=== PATIENT | female | born 1990 | race African-American/Black ===

== ENCOUNTER 2019-07-12 08:27 | Inpatient (IN) | payer OTHER ==
--- NOTE | 2019-07-12 08:45 | HP ---
CIWA Score Nausea/Vomitin-Mild Nausea/No Vomiting Muscle Tremors: 1-None Visible, but [place] Anxiety: 2 Agitation: 3 Paroxysmal Sweats: 3 Orientation: 3-Disoriented Date>2 days Tacttile Disturbances: 0-None Auditory Disturbances: 0-None Visual Disturbances: 0-None Headache: 0-None Present (patient currently intoxicated with high alcohol on breath.) CIWA-Ar Total Score: 13 - Admission Criteria OASAS Guidelines: Admission for Medically Managed Detox: Requires at least one of the followin. CIWA greater than 12 2. Seizures within the past 24 hours 3. Delirium tremens within the past 24 hours 4. Hallucinations within the past 24 hours 5. Acute intervention needed for co occurring medical disorder 6. Acute intervention needed for co occurring psychiatric disorder 7. Severe withdrawal that cannot be handled at a lower level of care (continued vomiting, continued diarrhea, abnormal vital signs) requiring intravenous medication and/or fluids 8. Admitting History and Physical - Admission Chief Complaint: " I want to get clean." History of Present Illness: 28 year old female with alcohol dependence and crystal meth use disorder seeking detox with significant other. She is using $70 crystal meth daily. Last used yesterday. She is drinking 1/5 vodka daily and last drank 3 AM today. She has had blackouts yesterday and withdrawal seizures 2 days ago. She smokes 1 ppd. PMH: Gastritis, PUD, Pancreatitis Psurg: Skin Biopsy was negative for cancer Poor support systems and homeless. History Source: Patient Limitations to Obtaining History: No Limitations - Past Medical History Gastrointestinal: Yes: Gastritis, GERD, Peptic Ulcer Disease ...LMP: 12/22/17 - Past Surgical History Past Surgical History: Yes: None - Smoking History Smoking history: Current every day smoker Have you smoked in the past 12 months: Yes Aproximately how many cigarettes per day: 20 - Alcohol/Substance Use Hx Alcohol Use: Yes Date of Last Use: 07/11/19 - Social History Usual Living Arrangement: Yes: With Significant Other Do you think of yourself as: Straight/Heterosexual ADL: Independent Occupation: unemployed History of Recent Travel: No Admission ROS S - HPI Allergies/Adverse Reactions: Allergies Allergy/AdvReac Type Severity Reaction Status Date / Time No Known Allergies Allergy Verified 01/05/18 13:21 Exam Limitations: No Limitations - Ebola screening Have you traveled outside of the country in the last 21 days: No Have you had contact with anyone from an Ebola affected area: No Have you been sick,other than usual withdrawal symptoms: No Do you have a fever: No - Review of Systems Constitutional: Chills, Diaphoresis EENT: reports: No Symptoms Reported Respiratory: reports: No Symptoms reported Cardiac: reports: No Symptoms Reported GI: reports: No Symptoms Reported : reports: No Symptoms Reported Musculoskeletal: reports: No Symptoms Reported Integumentary: reports: No Symptoms Reported Neuro: reports: No Symptoms reported Endocrine: reports: No Symptoms Reported Hematology: reports: No Symptoms Reported Psychiatric: reports: No Sypmtoms Reported, Judgement Intact, Mood/Affect Appropiate, Orientated x3 Other Systems: Reviewed and Negative Patient History - Patient Medical History Hx Anemia: No Hx Asthma: No Hx Chronic Obstructive Pulmonary Disease (COPD): No Hx Cancer: No Hx Cardiac Disorders: No Hx Congestive Heart Failure: No Hx Hypertension: No Hx Hypercholesterolemia: No Hx Pacemaker: No HX Cerebrovascular Accident: No Hx Seizures: No Hx Diabetes: No Hx Gastrointestinal Disorders: No Hx Genitourinary Disorders: No Hx Sexually Transmitted Disorders: Yes (Trichomonas, Gonorrhea) Hx Renal Disease (ESRD): No Hx Thyroid Disease: No Hx Human Immunodeficiency Virus (HIV): No (last 2016 negative) Hx Hepatitis C: No Hx Depression: Yes Hx Suicide Attempt: No (x2() OVERDOSE ON MEDICATION) Hx Bipolar Disorder: Yes Hx Schizophrenia: No - Patient Surgical History Past Surgical History: No Hx Neurologic Surgery: No Hx Cataract Extraction: No Hx Cardiac Surgery: No Hx Lung Surgery: No Hx Breast Surgery: No Hx Breast Biopsy: No Hx Abdominal Surgery: No Hx Appendectomy: No Hx Cholecystectomy: No Hx Genitourinary Surgery: No Hx Section: No Hx Orthopedic Surgery: No Other Surgical History: AT AGE 11 - PPD History Previous Implant?: Yes Documented Results: Negative w/proof Implanted On Prior R Admission?: Yes Date: 01/07/18 Results: negative PPD to be Administered?: Yes - Reproductive History Last Menstrual Period: 12/22/17 - Smoking Cessation Smoking history: Current every day smoker Have you smoked in the past 12 months: Yes Aproximately how many cigarettes per day: 20 Hx Chewing Tobacco Use: No Initiated information on smoking cessation: Yes 'Breaking Loose' booklet given: 07/12/19 - Substances abused Alcohol Substance route: Oral Frequency: Daily Amount used: 06/02 vodka Age of first use: 19 Date of last use: 07/12/19 Crystal meth Substance route: Smoking Frequency: Daily Amount used: $80 Age of first use: 19 Date of last use: 07/11/19 Admission Physical Exam [facility] - Physical General Appearance: Yes: Disheveled, Alcohol on Breath, Sweating HEENTM: Yes: EOMI, Hearing grossly Normal, Normal ENT Inspection, Normocephalic , Normal Voice, NETO, Pharynx Normal, Tm's normal Respiratory: Yes: Chest Non-Tender, Lungs Clear, Normal Breath Sounds, No Respiratory Distress, No Accessory Muscle Use Neck: Yes: No masses,lesions,Nodules, Supple, Trachea in good position Breast: Yes: Breast Exam Deferred Cardiology: Yes: Regular Rhythm, Regular Rate, S1, S2 Abdominal: Yes: Normal Bowel Sounds, Non Tender, Soft, Protuberent Genitourinary: Yes: Within Normal Limits Back: Yes: Normal Inspection Musculoskeletal: Yes: full range of Motion, Gait Steady, Pelvis Stable Extremities: Yes: Normal Capillary Refill, Normal Inspection, Normal Range of Motion, Non-Tender Neurological: Yes: brand protection manager II-XII NML intact, Fully Oriented, Alert, Motor Strength 5/5, Normal Mood/Affect, Normal Response Integumentary: Yes: Normal Color, Warm Lymphatic: Yes: Within Normal Limits - Diagnostic (1) Insomnia Current Visit: Yes Status: Chronic Qualifiers: Insomnia type: alcohol-induced Qualified Code(s): F10.982 - Alcohol use, unspecified with alcohol-induced sleep disorder (2) Alcohol dependence with uncomplicated intoxication Current Visit: Yes Status: Acute (3) Bipolar disorder Current Visit: Yes Status: Chronic (4) Nicotine dependence Current Visit: Yes Status: Chronic Qualifiers: Nicotine product type: cigarettes Substance use status: uncomplicated Qualified Code(s): F17.210 - Nicotine dependence, cigarettes, uncomplicated Cleared for Admission [facility] - Detox or Rehab [facility] Level of Care: Medically Managed Detox Regimen/Protocol: Librium Claeared for Rehab Admission: No Screened but not Admitted - Documentation of Visit Screened but not Admitted: No Breathalyzer - Breathalyzer Breathalyzer: 0.181 Urine Drug Screen - Test Device Lot number: [id number] Expiration date: 04/22/21 - Control Is test valid?: Yes - Results Drug screen NEGATIVE: No Urine drug screen results: YENY-Cocaine, BZO-Benzodiazepines Inpatient Rehab Admission - Rehab Decision to Admit Inpatient rehab admission?: No
[2019-07-12] MEDS ORDERED: chlordiazePOXIDE HCL 25 MG CAPSULE PO PRN (08:49)
[2019-07-12] MEDS ORDERED: MAG HYDROX/AL HYDROX/SIMETH 30 ML UNIT-DOSE CUP PO PRN (08:49)
[2019-07-12] MEDS ORDERED: MAGNESIUM HYDROX 2400MG/30ML ORAL SUSPENSION 30 ML CUP PO PRN (08:49)
[2019-07-12] MEDS ORDERED: BISMUTH SUBSALICYLATE 262 MG/15 ML BTL PO PRN (08:49)
[2019-07-12] MEDS ORDERED: ACETAMINOPHEN 325 MG TABLET (FP) PO PRN ×2 (08:49)
[2019-07-12] MEDS ORDERED: IBUPROFEN 400 MG TABLET (FP) PO PRN (08:49)
[2019-07-12] MEDS ORDERED: MAGNESIUM CITRATE 300 ML BOTTLE PO PRN (08:49)
[2019-07-12] MEDS ORDERED: MENTHOL/PHENOL 1 EACH UD MM PRN (08:49)
[2019-07-12] MEDS ORDERED: MELATONIN 5 MG TABLETS PO PRN (08:49)
[2019-07-12] MEDS ORDERED: METHOCARBAMOL 500 MG TABLET PO PRN (08:49)
[2019-07-12] MEDS ORDERED: hydrOXYzine PAMOATE 25 MG CAPSULE (FP) PO PRN (08:49)
[2019-07-12 10:47] VITALS: BMI 26.4
[2019-07-12] MEDS: NICOTINE 14 MG/24 HOURS TOPICAL PATCH TD SCH (12:30)
[2019-07-12] MEDS: chlordiazePOXIDE HCL 25 MG CAPSULE PO SCH ×3 (12:30→23:44)
[2019-07-12] MEDS: PRENATAL VITAMINS W/ FOLIC ACID TABLET (FP) PO SCH (12:31)
[2019-07-12 14:53] LABS: HEMATOCRIT 34.8 % (32.4-45.2); HEMOGLOBIN 11.6 GM/dL (10.7-15.3); MCH 32.4 pg (25.7-33.7); MCHC 33.3 g/dl (32.0-36.0); MEAN CELL VOLUME 97.3 fl (80-96); MEAN PLT VOLUME 9.2 fl (7.5-11.1); PLATELET COUNT 287 K/MM3 (134-434); RBC 3.57 M/mm3 (3.60-5.2); RDW 16.7 % (11.6-15.6); WHITE BLOOD COUNT 4.9 K/mm3 (4.0-10.0)
[2019-07-12 15:15] LABS: ALBUMIN 3.4 g/dl (3.4-5.0); BILIRUBIN,TOTAL 0.7 mg/dL (0.2-1); BLOOD UREA NITROGEN 7.9 mg/dL (7-18); CALCIUM 8.7 mg/dL (8.5-10.1); CREATININE 0.8 mg/dL (0.55-1.3); POTASSIUM 3.4 mmol/L (3.5-5.1)
--- NOTE | 2019-07-12 17:24 | PN ---
S Progress Note Note: Psychiatric nurse practitioner note: Environmental Health Safety Manager attempted to see patient for psychiatric consultation but patient was asleep. Psychiatric consultation deferred until tomorrow.
[2019-07-12] MEDS: THIAMINE HCL 100 MG TABLET (FP) PO SCH (23:44)
[2019-07-13] MEDS: chlordiazePOXIDE HCL 25 MG CAPSULE PO SCH ×4 (07:14→22:12)
[2019-07-13] MEDS: PRENATAL VITAMINS W/ FOLIC ACID TABLET (FP) PO SCH (12:23)
[2019-07-13] MEDS: NICOTINE 14 MG/24 HOURS TOPICAL PATCH TD SCH (12:24)
--- NOTE | 2019-07-13 12:34 | PN ---
S CIWA - CIWA Score Nausea/Vomitin-Mild Nausea/No Vomiting Muscle Tremors: 3 Anxiety: 2 Agitation: 2 Paroxysmal Sweats: 1-Minimal Palms Moist Orientation: 0-Oriented Tacttile Disturbances: 0-None Auditory Disturbances: 0-None Visual Disturbances: 0-None Headache: 1-Very Mild CIWA-Ar Total Score: 10 [facility] Progress Note (SOAP) Subjective: admitted with alcohol dependence and crystal meth use disorder seeking detox, feeling better today. seen by O: Vital Signs - 24 hr 07/12/19 07/12/19 07/13/19 19:18 22:59 00:46 Temperature 98.1 F 97.9 F Pulse Rate 109 H 88 Respiratory 20 18 18 Rate Blood Pressure 137/85 106/88 07/13/19 07/13/19 07/13/19 04:26 06:22 10:08 Temperature 97.3 F L 98.2 F Pulse Rate 65 86 Respiratory 18 18 16 Rate Blood Pressure 110/70 117/73 Laboratory Tests 07/12/19 07/12/19 07/12/19 10:35 10:35 10:35 WBC 4.9 RBC 3.57 L Hgb 11.6 Hct 34.8 MCV 97.3 H MCH 32.4 MCHC 33.3 RDW 16.7 H Plt Count 287 MPV 9.2 Sodium 145 Potassium 3.4 L Chloride 109 H Carbon Dioxide 27 Anion Gap 9 BUN 7.9 Creatinine 0.8 Est GFR (CKD-EPI)AfAm 115.47 Est GFR (CKD-EPI)NonAf 99.63 Random Glucose 109 H Calcium 8.7 Total Bilirubin 0.7 AST 61 H ALT 52 Alkaline Phosphatase 97 Total Protein 7.0 Albumin 3.4 RPR Titer Nonreactive a/p: AUD- continue detox protocol no complaints today
--- NOTE | 2019-07-13 16:58 | CONSULT ---
[facility] Psychiatric Consult - Data Date of interview: 07/13/19 Admission source: [facility] Identifying data: THREE vists at bedside by this senior copywriter. Patient declines to cooperate for the requested psychiatric evaluation. Nursing staff is made aware.
[2019-07-13] MEDS: THIAMINE HCL 100 MG TABLET (FP) PO SCH (22:12)
[2019-07-14] MEDS: chlordiazePOXIDE HCL 25 MG CAPSULE PO SCH ×2 (07:04→10:16)
[2019-07-14] MEDS: PRENATAL VITAMINS W/ FOLIC ACID TABLET (FP) PO SCH (10:16)
[2019-07-14] MEDS: NICOTINE 14 MG/24 HOURS TOPICAL PATCH TD SCH (10:16)
--- NOTE | 2019-07-14 13:51 | PN ---
S CIWA - CIWA Score Nausea/Vomitin-Mild Nausea/No Vomiting Muscle Tremors: 3 Anxiety: 3 Agitation: 3 Paroxysmal Sweats: No Perspiration Orientation: 0-Oriented Tacttile Disturbances: 0-None Auditory Disturbances: 0-None Visual Disturbances: 0-None Headache: 2-Mild CIWA-Ar Total Score: 12 [facility] Progress Note (SOAP) Subjective: Patient admitted for alcohol withdrawal sx Objective: 07/14/19 13:50 Laboratory Tests 07/12/19 07/12/19 07/12/19 10:35 10:35 10:35 WBC 4.9 RBC 3.57 L Hgb 11.6 Hct 34.8 MCV 97.3 H MCH 32.4 MCHC 33.3 RDW 16.7 H Plt Count 287 MPV 9.2 Sodium 145 Potassium 3.4 L Chloride 109 H Carbon Dioxide 27 Anion Gap 9 BUN 7.9 Creatinine 0.8 Est GFR (CKD-EPI)AfAm 115.47 Est GFR (CKD-EPI)NonAf 99.63 Random Glucose 109 H Calcium 8.7 Total Bilirubin 0.7 AST 61 H ALT 52 Alkaline Phosphatase 97 Total Protein 7.0 Albumin 3.4 RPR Titer Nonreactive Vital Signs Temperature 98.1 F 07/14/19 11:49 Pulse Rate 82 07/14/19 11:49 Respiratory Rate 16 07/14/19 11:49 Blood Pressure 107/70 07/14/19 11:49 O2 Sat by Pulse Oximetry (%) PE alert and oriented x 3 skin warm and dry +perrla, eoms intact bl gi nt, nd ext full rom, amb ad thom mild tremors anxious Assessment: 07/14/19 13:50 etoh withdrawal sx hypokalemia Plan: continue detox repeat K level in am
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
[2019-07-14 14:58] VITALS: BP 115/75; PULSE 79; TEMP 98.2
--- NOTE | 2019-07-14 15:51 | DS ---
[facility] Detox Discharge Summary Admission Date: 07/12/19 Discharge Date: 07/14/19 - History Present History: Alcohol Dependence - Physical Exam Results Vital Signs: Vital Signs Temperature 98.2 F 07/14/19 13:15 Pulse Rate 79 07/14/19 13:15 Respiratory Rate 18 07/14/19 13:15 Blood Pressure 115/75 07/14/19 13:15 O2 Sat by Pulse Oximetry (%) Patient informed staff her , admitted to [address] [facility], signed out and she wants to sign out as well. Patient encouraged by staff to stay in treatment and explained risk factors of reoccurrence with signing out AMA. Despite interventions, patient informed staff she wanted to leave and continued with AMA process. - Medication Discharge Medications: Ambulatory Orders NK [No Known Home Medication] 07/12/19 - AMA Did Patient Leave Against Medical Advice: Yes
[2019-07-15] MEDS ORDERED: chlordiazePOXIDE HCL 10 MG CAPSULE PO PRN
[2019-07-15] MEDS ORDERED: chlordiazePOXIDE HCL 10 MG CAPSULE PO SCH (05:00)
[2019-07-16] MEDS ORDERED: chlordiazePOXIDE HCL 10 MG CAPSULE PO SCH (05:00)
[2019-07-17] MEDS ORDERED: chlordiazePOXIDE HCL 10 MG CAPSULE PO ONE (05:00)
== END 2019-07-14 15:59 | disposition left against medical advice (07) | DRG 770 ==
LOC: YASAS 08:27 → Y6N 11:33
PROVIDERS: ADMIT Allergy & Immunology; ATTEND Allergy & Immunology
PROC: HZ2ZZZZ Detoxification Services for Substance Abuse Treatment (ICD-10-PCS; principal; 2019-07-12)
DX: F10.230 Alcohol dependence with withdrawal, uncomplicated (principal); F14.20 Cocaine dependence, uncomplicated; F17.210 Nicotine dependence, cigarettes, uncomplicated; F10.282 Alcohol dependence with alcohol-induced sleep disorder; F19.24 Other psychoactive substance dependence with psychoactive substance-induced mood disorder; F31.9 Bipolar disorder, unspecified; E87.6 Hypokalemia; Z62.810 Personal history of physical and sexual abuse in childhood; Z87.19 Personal history of other diseases of the digestive system; Z91.410 Personal history of adult physical and sexual abuse; Z86.19 Personal history of other infectious and parasitic diseases; Z91.5 Personal history of self-harm; Z59.0 Homelessness
CPT/HCPCS: 36415; 80053; 85027; 86593

== ENCOUNTER 2020-04-14 12:27 | Inpatient (IN) | payer OTHER ==
[2020-04-14] MEDS ORDERED: MENTHOL/PHENOL 1 EACH UD MM PRN (14:51)
[2020-04-14] MEDS ORDERED: IBUPROFEN 400 MG TABLET (FP) PO PRN (14:51)
[2020-04-14] MEDS ORDERED: MAGNESIUM HYDROX 2400MG/30ML ORAL SUSPENSION 30 ML CUP PO PRN (14:51)
[2020-04-14] MEDS ORDERED: METHOCARBAMOL 500 MG TABLET PO PRN (14:51)
[2020-04-14] MEDS ORDERED: MAGNESIUM CITRATE 300 ML BOTTLE PO PRN (14:51)
[2020-04-14] MEDS ORDERED: chlordiazePOXIDE HCL 25 MG CAPSULE PO PRN (14:51)
[2020-04-14] MEDS ORDERED: ACETAMINOPHEN 325 MG TABLET (FP) PO PRN ×2 (14:51)
[2020-04-14] MEDS ORDERED: MAG HYDROX/AL HYDROX/SIMETH 30 ML UNIT-DOSE CUP PO PRN (14:51)
[2020-04-14] MEDS ORDERED: NICOTINE POLACRILEX 2 MG GUM BUC PRN (14:51)
[2020-04-14 15:00] VITALS: BMI 25.4
[2020-04-14] MEDS: NICOTINE 14 MG/24 HOURS TOPICAL PATCH TD SCH (16:11)
[2020-04-14] MEDS: ONDANSETRON *ODT* 4 MG TABLET SL PRN (16:13)
[2020-04-14] MEDS: BISMUTH SUBSALICYLATE 524 MG/30 ML UD PO PRN (16:13)
[2020-04-14 17:25] LABS: POTASSIUM 4.3 mmol/L (3.5-5.1)
[2020-04-14 17:27] LABS: HEMATOCRIT 34.7 % (32.4-45.2); MCHC 34.6 g/dl (32.0-36.0); MEAN PLT VOLUME 8.8 fl (7.5-11.1); PLATELET COUNT 298 K/MM3 (134-434); RBC 3.44 M/mm3 (3.60-5.2); RDW 15.6 % (11.6-15.6); WHITE BLOOD COUNT 5.4 K/mm3 (4.0-10.0)
[2020-04-14 17:28] LABS: BLOOD UREA NITROGEN 15.2 mg/dL (7-18)
[2020-04-14 17:31] LABS: ALBUMIN 4.4 g/dl (3.4-5.0); CALCIUM 9.6 mg/dL (8.5-10.1)
[2020-04-14 17:35] LABS: CREATININE 0.7 mg/dL (0.55-1.3)
[2020-04-14 17:36] LABS: TOT PROT 8.7 g/dl (6.4-8.2)
[2020-04-14] MEDS: chlordiazePOXIDE HCL 25 MG CAPSULE PO SCH ×2 (17:39→22:15)
[2020-04-14] MEDS: hydrOXYzine PAMOATE 25 MG CAPSULE (FP) PO SCH ×2 (17:40→22:15)
[2020-04-14] MEDS: MELATONIN 5 MG TABLETS PO SCH (22:15)
[2020-04-14] MEDS: THIAMINE HCL 100 MG TABLET (FP) PO SCH (22:15)
[2020-04-15] MEDS: hydrOXYzine PAMOATE 25 MG CAPSULE (FP) PO SCH ×2 (07:01→10:49)
[2020-04-15] MEDS: chlordiazePOXIDE HCL 25 MG CAPSULE PO SCH ×4 (07:01→22:24)
[2020-04-15] MEDS ORDERED: NICOTINE 7 MG/24 HOURS TOPICAL PATCH TD SCH (10:00)
[2020-04-15] MEDS: PRENATAL VITAMINS W/ FOLIC ACID TABLET (FP) PO SCH (10:48)
[2020-04-15] MEDS: NICOTINE 14 MG/24 HOURS TOPICAL PATCH TD SCH (10:48)
[2020-04-15] MEDS: hydrOXYzine PAMOATE 25 MG CAPSULE (FP) PO PRN ×2 (13:20→22:23)
[2020-04-15] MEDS: ONDANSETRON *ODT* 4 MG TABLET SL PRN (13:20)
[2020-04-15] MEDS: BISMUTH SUBSALICYLATE 524 MG/30 ML UD PO PRN ×2 (13:20→17:49)
[2020-04-15] MEDS: MELATONIN 5 MG TABLETS PO SCH (22:22)
[2020-04-15] MEDS: QUEtiapine FUMARATE 100 MG TABLET (FP) PO SCH (22:23)
[2020-04-15] MEDS: THIAMINE HCL 100 MG TABLET (FP) PO SCH (22:24)
[2020-04-16] MEDS: chlordiazePOXIDE HCL 25 MG CAPSULE PO SCH ×4 (06:52→22:19)
[2020-04-16] MEDS: NICOTINE 14 MG/24 HOURS TOPICAL PATCH TD SCH (10:28)
[2020-04-16] MEDS: PRENATAL VITAMINS W/ FOLIC ACID TABLET (FP) PO SCH (10:28)
[2020-04-16] MEDS: MELATONIN 5 MG TABLETS PO SCH (22:18)
[2020-04-16] MEDS: QUEtiapine FUMARATE 100 MG TABLET (FP) PO SCH (22:19)
[2020-04-16] MEDS: THIAMINE HCL 100 MG TABLET (FP) PO SCH (22:20)
[2020-04-16] MEDS: hydrOXYzine PAMOATE 25 MG CAPSULE (FP) PO PRN (22:20)
[2020-04-17] MEDS ORDERED: chlordiazePOXIDE HCL 10 MG CAPSULE PO PRN
[2020-04-17] MEDS: chlordiazePOXIDE HCL 10 MG CAPSULE PO SCH ×4 (06:21→22:22)
[2020-04-17] MEDS: hydrOXYzine PAMOATE 25 MG CAPSULE (FP) PO PRN ×3 (11:12→22:22)
[2020-04-17] MEDS: PRENATAL VITAMINS W/ FOLIC ACID TABLET (FP) PO SCH (11:13)
[2020-04-17] MEDS: NICOTINE 14 MG/24 HOURS TOPICAL PATCH TD SCH (11:16)
[2020-04-17] MEDS: THIAMINE HCL 100 MG TABLET (FP) PO SCH (22:22)
[2020-04-17] MEDS: SUVOREXANT 10 MG TABLET PO PRN (22:22)
[2020-04-17] MEDS: MELATONIN 5 MG TABLETS PO SCH (22:24)
[2020-04-18] MEDS: chlordiazePOXIDE HCL 10 MG CAPSULE PO SCH ×2 (06:06→17:51)
[2020-04-18] MEDS: NICOTINE 14 MG/24 HOURS TOPICAL PATCH TD SCH (10:12)
[2020-04-18] MEDS: PRENATAL VITAMINS W/ FOLIC ACID TABLET (FP) PO SCH (10:13)
[2020-04-18] MEDS: hydrOXYzine PAMOATE 25 MG CAPSULE (FP) PO PRN ×2 (10:14→19:05)
[2020-04-18] MEDS: THIAMINE HCL 100 MG TABLET (FP) PO SCH (22:19)
[2020-04-18] MEDS: MELATONIN 5 MG TABLETS PO SCH (22:19)
[2020-04-18] MEDS: SUVOREXANT 10 MG TABLET PO PRN (22:19)
[2020-04-19] MEDS ORDERED: chlordiazePOXIDE HCL 10 MG CAPSULE PO ONE (05:00)
[2020-04-19 07:57] VITALS: BP 97/47; PULSE 88; TEMP 98.2
== END 2020-04-19 09:21 | disposition home or self-care (01) | DRG 775 ==
LOC: YASAS 12:27 → Y6N 15:30
PROVIDERS: ADMIT Allergy & Immunology; ATTEND Allergy & Immunology
PROC: HZ2ZZZZ Detoxification Services for Substance Abuse Treatment (ICD-10-PCS; principal; 2020-04-14)
DX: F10.230 Alcohol dependence with withdrawal, uncomplicated (principal); F15.10 Other stimulant abuse, uncomplicated; F17.210 Nicotine dependence, cigarettes, uncomplicated; F19.282 Other psychoactive substance dependence with psychoactive substance-induced sleep disorder; F19.24 Other psychoactive substance dependence with psychoactive substance-induced mood disorder; F31.9 Bipolar disorder, unspecified; I95.9 Hypotension, unspecified; E87.1 Hypo-osmolality and hyponatremia; K21.9 Gastro-esophageal reflux disease without esophagitis; R74.01 Elevation of levels of liver transaminase levels; Z87.11 Personal history of peptic ulcer disease; Z91.5 Personal history of self-harm; Z86.69 Personal history of other diseases of the nervous system and sense organs; Z86.19 Personal history of other infectious and parasitic diseases; Z62.810 Personal history of physical and sexual abuse in childhood; Z91.410 Personal history of adult physical and sexual abuse
CPT/HCPCS: 36415; 80053; 85027; 86780; C9803; Q0162; U0003

== ENCOUNTER 2022-09-29 16:14 | Inpatient (IN) | payer OTHER ==
[2022-09-29 17:36] VITALS: BMI 26.8
[2022-09-29] MEDS ORDERED: BISMUTH SUBSALICYLATE 524 MG/30 ML PO PRN (19:44)
[2022-09-29] MEDS ORDERED: DICYCLOMINE HCL 10 MG CAPSULE PO PRN (19:44)
[2022-09-29] MEDS ORDERED: ONDANSETRON *ODT* 4 MG TABLET SL PRN (19:44)
[2022-09-29] MEDS ORDERED: IBUPROFEN 400 MG TABLET (FP) PO PRN (19:44)
[2022-09-29] MEDS ORDERED: NICOTINE 10 MG CARTRIDGE (INHALER) IH PRN (19:44)
[2022-09-29] MEDS ORDERED: IBUPROFEN 600 MG TABLET (FP) PO PRN (19:44)
[2022-09-29] MEDS ORDERED: LOPERAMIDE HCL 2 MG CAPSULE PO PRN (19:44)
[2022-09-29] MEDS ORDERED: NALOXONE HCL 0.4 MG/ML VIAL IM PRN (19:44)
[2022-09-29] MEDS ORDERED: MAGNESIUM HYDROX 2400MG/30ML ORAL SUSPENSION 30 ML CUP PO PRN (19:44)
[2022-09-29] MEDS ORDERED: MAG HYDROX/AL HYDROX/SIMETH 30 ML UNIT-DOSE CUP PO PRN (19:44)
[2022-09-29] MEDS ORDERED: guaiFENesin 600 MG TABLET.ER (FP) PO PRN (19:44)
[2022-09-29] MEDS ORDERED: ACETAMINOPHEN 325 MG TABLET (FP) PO PRN (19:44)
[2022-09-29] MEDS ORDERED: POLYETHYLENE GLYCOL (HEALTHYLAX) 3350 17 GM PACKET PO PRN (19:44)
[2022-09-29] MEDS ORDERED: NALOXONE HCL (KLOXXADO) 8 MG SPRAY NS PRN (19:44)
[2022-09-29] MEDS ORDERED: BENZONATATE 200 MG CAPSULE PO PRN (19:44)
[2022-09-29] MEDS ORDERED: BENZOCAINE/MENTHOL (CHLORASEPTIC ) LOZENGE MM PRN (19:44)
[2022-09-29] MEDS ORDERED: diazePAM 5 MG TABLET PO PRN (19:44)
[2022-09-29] MEDS ORDERED: MELATONIN 5 MG TABLETS PO SCH (22:00)
[2022-09-29] MEDS: METHOCARBAMOL 500 MG TABLET PO PRN (22:05)
[2022-09-29] MEDS: diazePAM 5 MG TABLET PO SCH (22:05)
[2022-09-29] MEDS: THIAMINE HCL 100 MG TABLET (FP) PO SCH (22:05)
[2022-09-29] MEDS: MELATONIN 5 MG TABLETS PO SCH (22:05)
[2022-09-30] MEDS: diazePAM 5 MG TABLET PO SCH ×4 (05:34→22:39)
[2022-09-30] MEDS: PRENATAL VITAMINS W/ FOLIC ACID TABLET (FP) PO SCH (10:29)
[2022-09-30 11:29] LABS: HEMATOCRIT 30.6 % (32.4-45.2); HEMOGLOBIN 10.8 GM/dL (10.7-15.3); MCH 31.8 pg (25.7-33.7); MCHC 35.4 g/dl (32.0-36.0); MEAN CELL VOLUME 89.9 fl (80-96); MEAN PLT VOLUME 8.7 fl (7.5-11.1); PLATELET COUNT 252 10^3/uL (134-434); RBC 3.41 M/mm3 (3.60-5.2); RDW 18.9 % (11.6-15.6); WHITE BLOOD COUNT 3.6 K/mm3 (4.0-10.0)
[2022-09-30 11:56] LABS: POTASSIUM 3.4 mmol/L (3.5-5.1)
[2022-09-30 12:24] LABS: CALCIUM 8.7 mg/dL (8.5-10.1)
[2022-09-30 12:25] LABS: ALBUMIN 3.5 g/dl (3.4-5.0); BLOOD UREA NITROGEN 12.3 mg/dL (7-18)
[2022-09-30 12:28] LABS: CREATININE 0.5 mg/dL (0.55-1.3)
[2022-09-30 12:29] LABS: BILIRUBIN,TOTAL 1.3 mg/dL (0.2-1)
[2022-09-30 12:58] LABS: HIV INTERPRETATION NEGATIVE (NEGATIVE)
[2022-09-30] MEDS: POTASSIUM CHLORIDE ORAL LIQUID 20 MEQ/15 ML PO SCH ×2 (15:09→22:40)
[2022-09-30] MEDS: hydrOXYzine PAMOATE 25 MG CAPSULE (FP) PO PRN (17:30)
[2022-09-30] MEDS: METHOCARBAMOL 500 MG TABLET PO PRN (22:38)
[2022-09-30] MEDS: MELATONIN 5 MG TABLETS PO SCH (22:38)
[2022-09-30] MEDS: THIAMINE HCL 100 MG TABLET (FP) PO SCH (22:38)
[2022-09-30] MEDS: traZODone HCL 50 MG TABLET (FP) PO SCH (22:39)
[2022-10-01] MEDS: diazePAM 5 MG TABLET PO SCH ×3 (06:01→22:32)
[2022-10-01] MEDS: SERTRALINE HCL 50 MG TABLET (FP) PO SCH (10:56)
[2022-10-01] MEDS: POTASSIUM CHLORIDE ORAL LIQUID 20 MEQ/15 ML PO SCH ×2 (10:56→22:31)
[2022-10-01] MEDS: PRENATAL VITAMINS W/ FOLIC ACID TABLET (FP) PO SCH (10:56)
[2022-10-01] MEDS: hydrOXYzine PAMOATE 25 MG CAPSULE (FP) PO PRN (17:35)
[2022-10-01] MEDS: traZODone HCL 50 MG TABLET (FP) PO SCH (22:31)
[2022-10-01] MEDS: THIAMINE HCL 100 MG TABLET (FP) PO SCH (22:32)
[2022-10-01] MEDS: MELATONIN 5 MG TABLETS PO SCH (22:32)
[2022-10-01] MEDS: METHOCARBAMOL 500 MG TABLET PO PRN (22:33)
[2022-10-02] MEDS: diazePAM 5 MG TABLET PO SCH ×2 (07:22→18:45)
[2022-10-02] MEDS: POTASSIUM CHLORIDE ORAL LIQUID 20 MEQ/15 ML PO SCH (09:47)
[2022-10-02] MEDS: SERTRALINE HCL 50 MG TABLET (FP) PO SCH (09:47)
[2022-10-02] MEDS: PRENATAL VITAMINS W/ FOLIC ACID TABLET (FP) PO SCH (09:48)
[2022-10-02] MEDS: MELATONIN 5 MG TABLETS PO SCH (22:19)
[2022-10-02] MEDS: METHOCARBAMOL 500 MG TABLET PO PRN (22:20)
[2022-10-02] MEDS: THIAMINE HCL 100 MG TABLET (FP) PO SCH (22:20)
[2022-10-02] MEDS: traZODone HCL 50 MG TABLET (FP) PO SCH (22:20)
[2022-10-03] MEDS ORDERED: diazePAM 5 MG TABLET PO ONE (06:00)
[2022-10-03 09:13] VITALS: BP 130/78; PULSE 81; RESP 18; TEMP 97.9
[2022-10-03] MEDS: SERTRALINE HCL 50 MG TABLET (FP) PO SCH (09:48)
[2022-10-03] MEDS: PRENATAL VITAMINS W/ FOLIC ACID TABLET (FP) PO SCH (09:50)
== END 2022-10-03 12:03 | disposition other institution (70) | DRG 774 ==
LOC: YASAS 16:14 → Y3N 21:34
PROVIDERS: ADMIT Allergy & Immunology; ATTEND Surgery
PROC: HZ2ZZZZ Detoxification Services for Substance Abuse Treatment (ICD-10-PCS; principal; 2022-09-29)
DX: F14.20 Cocaine dependence, uncomplicated (principal); F10.230 Alcohol dependence with withdrawal, uncomplicated; F17.210 Nicotine dependence, cigarettes, uncomplicated; F10.282 Alcohol dependence with alcohol-induced sleep disorder; F19.24 Other psychoactive substance dependence with psychoactive substance-induced mood disorder; F32.A Depression, unspecified; E87.6 Hypokalemia; I10 Essential (primary) hypertension; K21.9 Gastro-esophageal reflux disease without esophagitis; Z62.810 Personal history of physical and sexual abuse in childhood; Z91.410 Personal history of adult physical and sexual abuse; Z86.73 Personal history of transient ischemic attack (TIA), and cerebral infarction without residual deficits; Z86.69 Personal history of other diseases of the nervous system and sense organs; Z87.11 Personal history of peptic ulcer disease
CPT/HCPCS: 36415; 80053; 81025; 85027; 86780; 87389; C9803-CS; U0003; U0005

== ENCOUNTER 2022-10-03 18:51 | Inpatient (IN) | payer OTHER ==
[2022-10-03 19:39] VITALS: BMI 26.8
[2022-10-03] MEDS ORDERED: P-EPHED 60MG/TRIPROLIDI 2.5MG TABLET PO PRN (20:02)
[2022-10-03] MEDS ORDERED: COLLOIDAL OATMEAL 1 BAR EACH TP PRN (20:02)
[2022-10-03] MEDS ORDERED: LOPERAMIDE HCL 2 MG CAPSULE PO PRN (20:02)
[2022-10-03] MEDS ORDERED: MAG HYDROX/AL HYDROX/SIMETH 30 ML UNIT-DOSE CUP PO PRN (20:02)
[2022-10-03] MEDS ORDERED: IBUPROFEN 400 MG TABLET (FP) PO PRN (20:02)
[2022-10-03] MEDS ORDERED: ACETAMINOPHEN 325 MG TABLET (FP) PO PRN (20:02)
[2022-10-03] MEDS ORDERED: BENZONATATE 200 MG CAPSULE PO PRN (20:02)
[2022-10-03] MEDS ORDERED: BENZOCAINE/MENTHOL (CHLORASEPTIC ) LOZENGE MM PRN (20:02)
[2022-10-03] MEDS ORDERED: IBUPROFEN 600 MG TABLET (FP) PO PRN (20:02)
[2022-10-03] MEDS ORDERED: NICOTINE POLACRILEX 2 MG GUM BUC PRN (20:02)
[2022-10-03] MEDS ORDERED: AMMONIUM LACTATE 12% LOTION 225 GM BOTTLE TP PRN (20:02)
[2022-10-03] MEDS ORDERED: MAGNESIUM HYDROX 2400MG/30ML ORAL SUSPENSION 30 ML CUP PO PRN (20:02)
[2022-10-03] MEDS ORDERED: POLYETHYLENE GLYCOL (HEALTHYLAX) 3350 17 GM PACKET PO PRN (20:02)
[2022-10-03] MEDS ORDERED: MELATONIN 5 MG TABLETS PO PRN (20:02)
[2022-10-03] MEDS ORDERED: guaiFENesin 600 MG TABLET.ER (FP) PO PRN (20:02)
[2022-10-03] MEDS: THIAMINE HCL 100 MG TABLET (FP) PO SCH (21:11)
[2022-10-03] MEDS ORDERED: traZODone HCL 50 MG TABLET (FP) PO ONE (22:00)
[2022-10-04] MEDS: NICOTINE 7 MG/24 HOURS TOPICAL PATCH TD SCH (10:13)
[2022-10-04] MEDS: PRENATAL VITAMINS W/ FOLIC ACID TABLET (FP) PO SCH (10:13)
[2022-10-04] MEDS: METHOCARBAMOL 500 MG TABLET PO PRN ×2 (10:15→21:33)
[2022-10-04] MEDS: SERTRALINE HCL 50 MG TABLET (FP) PO SCH (10:15)
[2022-10-04] MEDS ORDERED: NICOTINE POLACRILEX 2 MG GUM BUC PRN (14:10)
[2022-10-04] MEDS: NICOTINE 10 MG CARTRIDGE (INHALER) IH SCH (14:37)
[2022-10-04] MEDS: THIAMINE HCL 100 MG TABLET (FP) PO SCH (21:33)
[2022-10-04] MEDS: traZODone HCL 50 MG TABLET (FP) PO SCH (21:33)
[2022-10-05] MEDS: hydrOXYzine PAMOATE 50 MG CAPSULE (FP) PO PRN ×2 (06:11→21:32)
[2022-10-05] MEDS: NICOTINE 7 MG/24 HOURS TOPICAL PATCH TD SCH (10:36)
[2022-10-05] MEDS: NICOTINE 10 MG CARTRIDGE (INHALER) IH SCH (10:36)
[2022-10-05] MEDS: PRENATAL VITAMINS W/ FOLIC ACID TABLET (FP) PO SCH (10:36)
[2022-10-05] MEDS: SERTRALINE HCL 50 MG TABLET (FP) PO SCH (10:38)
[2022-10-05] MEDS: THIAMINE HCL 100 MG TABLET (FP) PO SCH (21:32)
[2022-10-05] MEDS: traZODone HCL 50 MG TABLET (FP) PO SCH (21:32)
[2022-10-05] MEDS: METHOCARBAMOL 500 MG TABLET PO PRN (21:32)
[2022-10-06] MEDS: NICOTINE 10 MG CARTRIDGE (INHALER) IH SCH (10:13)
[2022-10-06] MEDS: PRENATAL VITAMINS W/ FOLIC ACID TABLET (FP) PO SCH (10:13)
[2022-10-06] MEDS: NICOTINE 7 MG/24 HOURS TOPICAL PATCH TD SCH (10:13)
[2022-10-06] MEDS: hydrOXYzine PAMOATE 50 MG CAPSULE (FP) PO PRN ×2 (10:14→21:16)
[2022-10-06] MEDS: SERTRALINE HCL 50 MG TABLET (FP) PO SCH (10:14)
[2022-10-06] MEDS: traZODone HCL 50 MG TABLET (FP) PO SCH (21:16)
[2022-10-06] MEDS: METHOCARBAMOL 500 MG TABLET PO PRN (21:16)
[2022-10-06] MEDS: THIAMINE HCL 100 MG TABLET (FP) PO SCH (21:16)
[2022-10-07] MEDS ORDERED: NALTREXONE HCL 50 MG TABLET PO ONE (10:00)
[2022-10-07] MEDS: NICOTINE 10 MG CARTRIDGE (INHALER) IH SCH (10:12)
[2022-10-07] MEDS: PRENATAL VITAMINS W/ FOLIC ACID TABLET (FP) PO SCH (10:12)
[2022-10-07] MEDS: SERTRALINE HCL 50 MG TABLET (FP) PO SCH (10:12)
[2022-10-07] MEDS: NICOTINE 7 MG/24 HOURS TOPICAL PATCH TD SCH (10:12)
[2022-10-07] MEDS: THIAMINE HCL 100 MG TABLET (FP) PO SCH (21:13)
[2022-10-07] MEDS: METHOCARBAMOL 500 MG TABLET PO PRN (21:13)
[2022-10-07] MEDS: traZODone HCL 50 MG TABLET (FP) PO SCH (21:13)
[2022-10-08] MEDS: NICOTINE 7 MG/24 HOURS TOPICAL PATCH TD SCH (10:22)
[2022-10-08] MEDS: PRENATAL VITAMINS W/ FOLIC ACID TABLET (FP) PO SCH (10:23)
[2022-10-08] MEDS: NICOTINE 10 MG CARTRIDGE (INHALER) IH SCH (10:23)
[2022-10-08] MEDS: NALTREXONE HCL 50 MG TABLET PO SCH (10:23)
[2022-10-08] MEDS: SERTRALINE HCL 50 MG TABLET (FP) PO SCH (10:23)
[2022-10-08] MEDS: hydrOXYzine PAMOATE 50 MG CAPSULE (FP) PO PRN (10:24)
[2022-10-08] MEDS: NICOTINE 10 MG CARTRIDGE (INHALER) IH PRN (21:35)
[2022-10-08] MEDS: THIAMINE HCL 100 MG TABLET (FP) PO SCH (21:36)
[2022-10-08] MEDS: traZODone HCL 50 MG TABLET (FP) PO SCH (21:36)
[2022-10-08] MEDS: METHOCARBAMOL 500 MG TABLET PO PRN (21:36)
[2022-10-09] MEDS: NICOTINE 10 MG CARTRIDGE (INHALER) IH PRN ×3 (10:33→21:43)
[2022-10-09] MEDS: SERTRALINE HCL 50 MG TABLET (FP) PO SCH (10:33)
[2022-10-09] MEDS: NICOTINE 7 MG/24 HOURS TOPICAL PATCH TD SCH (10:33)
[2022-10-09] MEDS: PRENATAL VITAMINS W/ FOLIC ACID TABLET (FP) PO SCH (10:33)
[2022-10-09] MEDS: NALTREXONE HCL 50 MG TABLET PO SCH (10:34)
[2022-10-09] MEDS: hydrOXYzine PAMOATE 50 MG CAPSULE (FP) PO PRN ×2 (10:34→21:43)
[2022-10-09] MEDS: traZODone HCL 50 MG TABLET (FP) PO SCH (21:42)
[2022-10-09] MEDS: THIAMINE HCL 100 MG TABLET (FP) PO SCH (21:43)
[2022-10-09] MEDS: METHOCARBAMOL 500 MG TABLET PO PRN (21:43)
[2022-10-10] MEDS: PRENATAL VITAMINS W/ FOLIC ACID TABLET (FP) PO SCH (10:16)
[2022-10-10] MEDS: NICOTINE 7 MG/24 HOURS TOPICAL PATCH TD SCH (10:17)
[2022-10-10] MEDS: SERTRALINE HCL 50 MG TABLET (FP) PO SCH (10:18)
[2022-10-10] MEDS: NICOTINE 10 MG CARTRIDGE (INHALER) IH PRN ×2 (10:18→18:54)
[2022-10-10] MEDS: NALTREXONE HCL 50 MG TABLET PO SCH (10:18)
[2022-10-10] MEDS: traZODone HCL 50 MG TABLET (FP) PO SCH (21:09)
[2022-10-10] MEDS: THIAMINE HCL 100 MG TABLET (FP) PO SCH (21:09)
[2022-10-10] MEDS: METHOCARBAMOL 500 MG TABLET PO PRN (21:10)
[2022-10-11] MEDS: NICOTINE 7 MG/24 HOURS TOPICAL PATCH TD SCH (09:47)
[2022-10-11] MEDS: NICOTINE 10 MG CARTRIDGE (INHALER) IH PRN ×3 (09:47→21:29)
[2022-10-11] MEDS: PRENATAL VITAMINS W/ FOLIC ACID TABLET (FP) PO SCH (09:47)
[2022-10-11] MEDS: NALTREXONE HCL 50 MG TABLET PO SCH (09:48)
[2022-10-11] MEDS: SERTRALINE HCL 50 MG TABLET (FP) PO SCH (09:48)
[2022-10-11] MEDS: METHOCARBAMOL 500 MG TABLET PO PRN (21:30)
[2022-10-11] MEDS: THIAMINE HCL 100 MG TABLET (FP) PO SCH (21:30)
[2022-10-11] MEDS: traZODone HCL 50 MG TABLET (FP) PO SCH (21:30)
[2022-10-12] MEDS: NALTREXONE HCL 50 MG TABLET PO SCH (09:42)
[2022-10-12] MEDS: hydrOXYzine PAMOATE 50 MG CAPSULE (FP) PO PRN ×2 (09:42→21:15)
[2022-10-12] MEDS: NICOTINE 7 MG/24 HOURS TOPICAL PATCH TD SCH (09:42)
[2022-10-12] MEDS: PRENATAL VITAMINS W/ FOLIC ACID TABLET (FP) PO SCH (09:42)
[2022-10-12] MEDS: SERTRALINE HCL 50 MG TABLET (FP) PO SCH (09:42)
[2022-10-12] MEDS: NICOTINE 10 MG CARTRIDGE (INHALER) IH PRN ×3 (09:43→21:15)
[2022-10-12] MEDS: THIAMINE HCL 100 MG TABLET (FP) PO SCH (21:15)
[2022-10-12] MEDS: METHOCARBAMOL 500 MG TABLET PO PRN (21:15)
[2022-10-12] MEDS: traZODone HCL 50 MG TABLET (FP) PO SCH (21:15)
[2022-10-13] MEDS: hydrOXYzine PAMOATE 50 MG CAPSULE (FP) PO PRN (10:09)
[2022-10-13] MEDS: NICOTINE 10 MG CARTRIDGE (INHALER) IH PRN ×4 (10:09→22:10)
[2022-10-13] MEDS: NALTREXONE HCL 50 MG TABLET PO SCH (10:09)
[2022-10-13] MEDS: SERTRALINE HCL 50 MG TABLET (FP) PO SCH (10:09)
[2022-10-13] MEDS: PRENATAL VITAMINS W/ FOLIC ACID TABLET (FP) PO SCH (10:09)
[2022-10-13] MEDS: NICOTINE 7 MG/24 HOURS TOPICAL PATCH TD SCH (10:09)
[2022-10-13] MEDS: traZODone HCL 50 MG TABLET (FP) PO SCH (21:06)
[2022-10-13] MEDS: THIAMINE HCL 100 MG TABLET (FP) PO SCH (21:06)
[2022-10-13] MEDS: METHOCARBAMOL 500 MG TABLET PO PRN (21:06)
[2022-10-14] MEDS: SERTRALINE HCL 50 MG TABLET (FP) PO SCH (10:28)
[2022-10-14] MEDS: NALTREXONE HCL 50 MG TABLET PO SCH (10:28)
[2022-10-14] MEDS: PRENATAL VITAMINS W/ FOLIC ACID TABLET (FP) PO SCH (10:28)
[2022-10-14] MEDS: hydrOXYzine PAMOATE 50 MG CAPSULE (FP) PO PRN ×2 (10:28→21:08)
[2022-10-14] MEDS: NICOTINE 10 MG CARTRIDGE (INHALER) IH PRN ×4 (10:28→22:02)
[2022-10-14] MEDS: NICOTINE 7 MG/24 HOURS TOPICAL PATCH TD SCH (10:29)
[2022-10-14] MEDS: traZODone HCL 50 MG TABLET (FP) PO SCH (21:08)
[2022-10-14] MEDS: THIAMINE HCL 100 MG TABLET (FP) PO SCH (21:08)
[2022-10-14] MEDS: METHOCARBAMOL 500 MG TABLET PO PRN (21:08)
[2022-10-15] MEDS: NICOTINE 7 MG/24 HOURS TOPICAL PATCH TD SCH (10:21)
[2022-10-15] MEDS: NICOTINE 10 MG CARTRIDGE (INHALER) IH PRN ×3 (10:21→21:03)
[2022-10-15] MEDS: PRENATAL VITAMINS W/ FOLIC ACID TABLET (FP) PO SCH (10:21)
[2022-10-15] MEDS: SERTRALINE HCL 50 MG TABLET (FP) PO SCH (10:23)
[2022-10-15] MEDS: NALTREXONE HCL 50 MG TABLET PO SCH (10:23)
[2022-10-15] MEDS: hydrOXYzine PAMOATE 50 MG CAPSULE (FP) PO PRN (10:24)
[2022-10-15] MEDS: METHOCARBAMOL 500 MG TABLET PO PRN (21:02)
[2022-10-15] MEDS: THIAMINE HCL 100 MG TABLET (FP) PO SCH (21:02)
[2022-10-15] MEDS: traZODone HCL 50 MG TABLET (FP) PO SCH (21:02)
[2022-10-16] MEDS: NICOTINE 7 MG/24 HOURS TOPICAL PATCH TD SCH (10:20)
[2022-10-16] MEDS: NALTREXONE HCL 50 MG TABLET PO SCH (10:20)
[2022-10-16] MEDS: PRENATAL VITAMINS W/ FOLIC ACID TABLET (FP) PO SCH (10:20)
[2022-10-16] MEDS: hydrOXYzine PAMOATE 50 MG CAPSULE (FP) PO PRN ×2 (10:20→21:37)
[2022-10-16] MEDS: SERTRALINE HCL 50 MG TABLET (FP) PO SCH (10:20)
[2022-10-16] MEDS: NICOTINE 10 MG CARTRIDGE (INHALER) IH PRN ×3 (10:20→21:37)
[2022-10-16] MEDS: METHOCARBAMOL 500 MG TABLET PO PRN (21:35)
[2022-10-16] MEDS: THIAMINE HCL 100 MG TABLET (FP) PO SCH (21:35)
[2022-10-16] MEDS: traZODone HCL 50 MG TABLET (FP) PO SCH (21:35)
[2022-10-17 07:32] VITALS: BP 107/65; PULSE 84; RESP 18; TEMP 97.4
[2022-10-17] MEDS: NALTREXONE HCL 50 MG TABLET PO SCH (09:59)
[2022-10-17] MEDS: PRENATAL VITAMINS W/ FOLIC ACID TABLET (FP) PO SCH (09:59)
[2022-10-17] MEDS: NICOTINE 7 MG/24 HOURS TOPICAL PATCH TD SCH (09:59)
[2022-10-17] MEDS: SERTRALINE HCL 50 MG TABLET (FP) PO SCH (09:59)
[2022-10-17] MEDS: NICOTINE 10 MG CARTRIDGE (INHALER) IH PRN (10:00)
== END 2022-10-17 10:45 | disposition home or self-care (01) | DRG 772 ==
LOC: YASAS 18:51 → Y5N 20:32
PROVIDERS: ADMIT Allergy & Immunology; ATTEND Psychiatry & Neurology Pain Medicine
PROC: HZ42ZZZ Group Counseling for Substance Abuse Treatment, Cognitive-Behavioral (ICD-10-PCS; principal; 2022-10-03)
DX: F10.20 Alcohol dependence, uncomplicated (principal); F14.20 Cocaine dependence, uncomplicated; F13.20 Sedative, hypnotic or anxiolytic dependence, uncomplicated; F17.210 Nicotine dependence, cigarettes, uncomplicated; F10.282 Alcohol dependence with alcohol-induced sleep disorder; F19.282 Other psychoactive substance dependence with psychoactive substance-induced sleep disorder; F41.9 Anxiety disorder, unspecified; F32.A Depression, unspecified; K21.9 Gastro-esophageal reflux disease without esophagitis; Z87.19 Personal history of other diseases of the digestive system; Z87.01 Personal history of pneumonia (recurrent); Z86.73 Personal history of transient ischemic attack (TIA), and cerebral infarction without residual deficits; Z59.01 Sheltered homelessness
CPT/HCPCS: 81025